=== PATIENT | male | born 2000 | race Caucasian/White ===

== ENCOUNTER 2021-01-12 22:12 | Outpatient (REF) | payer MEDICAID, SELFPAY ==
[2021-01-14 16:38] LABS: COVID-19 RT-PCR UVMMC Result Negative (Negative)
== END 2021-01-12 22:13 | disposition home or self-care (01) ==
LOC: NCHCN 22:12
PROVIDERS: PCP Nurse Practitioner; Visit Provider Nurse Practitioner Family
DX: Z20.822 Contact with and (suspected) exposure to COVID-19 (principal); J02.9 Acute pharyngitis, unspecified; R50.9 Fever, unspecified; R09.89 Other specified symptoms and signs involving the circulatory and respiratory systems
CPT/HCPCS: U0003

== ENCOUNTER 2021-01-24 20:24 | Emergency (ER) | payer MEDICAID, SELFPAY ==
[2021-01-24 20:28] VITALS: BP 138/69; PULSE 87; RESP 22; TEMP 36.6; O2SAT 98
--- NOTE | 2021-01-24 20:30 | DI.RAD_ITS ---
Exam(s) XR FOOT RT COMPLETE EXAM: XR FOOT RT COMPLETE CLINICAL HISTORY: pain s/p trauma. TECHNIQUE: 2D digital imaging was performed. COMPARISON: No exams were available for comparison FINDINGS: There is no evidence of obvious fracture or diastasis of the Lisfranc joint. Bone density normal. No osseous lesions. No radiopaque foreign body IMPRESSION: No significant acute findings. DATA REPOSITORY: RADIATION DOSE DELIVERED:
--- NOTE | 2021-01-24 20:39 | ED.GENADUL_ITS ---
Discharge Plan Disposition Patient Disposition: HOME Condition: Stable Discharge Details Clinical Impression: Crush injury of right foot Primary Care Provider: Rabia Prather ED Provider: Mike Mendoza Home Meds and New Rx's Prescriptions: No Action No Known Home Meds RF: 0 Discharge Instructions Additional Instructions: The xray did not show any concerning findings on my read, if the radiologist sees any concerning findings I will call you you can take 1000mg tylenol and 600mg ibuprofen every 6 hours for pain as needed if pain continues in a week see your primary care provider if you have severe worsening pain, or feel more ill return to the emergency department Stand Alone Forms: Work Release Medical Decision Making 20 yo male with no chronic medical problems comes in with right foot pain. A few hours ago him and his family were moving a large gun safe and it was dropped on his right foot. Did not fall or sustain other injuries. He has pain over the dorsal mid foot and has a hematoma in this area. He has no pain in the ankle with normal sensation. 2+ dp/pt pulses and normal sensation and movement of the toes. No pain in the knee hip or leg. Suspect contusion and hematoma but will xray to evaluate for possible fracture xray on my read unremarkable. He is able to bear weight and walk with mild limp so do not feel ct indicated. Pt doesn't want to wait for vrad report, will call him if vrad sees any acute findings. Advised prn tylenol and ibuprofen and if not better ramonita week to see pcp return precautions given Differential Diagnosis Differential Diagnosis: fracture, contusion, crush injury Imaging Data Radiologic Study: Attestation: I personally reviewed and interpreted this imaging study as follows: Imaging: X-Ray My impression: no acute findings HPI General Mode of arrival: ambulatory . Date/Time Provider Initiated Documentation: 01/24/21 20:38 . Limitations to Documentation: no limitations . Information obtained by: patient . History of Present Illness 20 year old M presents to the emergency department with the chief complaint of right foot pain, described as moderate, Quality is described as aching, and is localized to the right and lower extremity. Patient reports no radiation. Patient started experiencing this hour(s) (3) and it has been constant. Rest improves symptom(s), Movement worsens symptoms . Patient notes no other symptoms.. Patient did receive the following treatments prior to arrival, NSAID (200mg ibuprofen) Related Data Home Medications Medication Instructions Recorded Confirmed Unknown [No Known Home Meds] 02/21/19 02/21/19 Allergies Allergy/AdvReac Type Severity Reaction Status Date / Time amoxicillin Allergy Intermediate Hives Verified 01/12/21 18:03 Penicillins Allergy Intermediate Hives Verified 01/12/21 18:03 Sulfa (Sulfonamide Allergy Intermediate hives Verified 01/12/21 18:03 Antibiotics) General Stated Complaint: Orthopedic CASIE: 4 Review of Systems All systems reviewed & are unremarkable except as noted in HPI and below Constitutional Constitutional: Denies chills, Denies fever(s) and Denies weakness Cardiovascular Cardiovascular: Denies chest pain and Denies dyspnea Respiratory Respiratory: Denies cough and Denies dyspnea Gastrointestinal Gastrointestinal: Denies abdominal pain, Denies nausea and Denies vomiting Neurologic Neurologic: Denies weakness PFSH Family History Mother No problems noted. Father No problems noted. Sister No problems noted. Brother No problems noted. Social History Smoking/Tobacco Use Status: Never Smoking risk assessment performed?: Yes Alcohol Intake: never Drug use: Never Pets and animals: Yes Pets and animals: dog(s), fish, ferret(s) and other Sexually active: No Do you think of yourself as: straight/heterosexual Current gender identity: male Duration: 30-45 minutes/day Frequency: 1-2 times per week Seatbelt use: always Helmet use: Yes Helmet use: always Do you feel safe at home: Yes Do you feel safe in your relationship?: Yes Exam Const General: no acute distress Orientation: alert [facility] Head: normal to inspection Ears: external ears normal General nose exam: external nose normal Mouth: moist mucous membranes Eyes General: appearance normal, both eyes and all related structures Neck Neck: normal visual inspection Resp Effort & Inspection: normal respiratory effort and able to speak in complete sentences Cardio Rate: regular rate Skin General skin exam: no rashes or lesions noted Neuro General: patient alert and patient oriented x3 Extrem General: full ROM and capillary refill normal Psych Mental Status: mental status grossly normal Course Vital Signs Vital signs: Vital Signs Temperature 36.6 C 01/24/21 20:28 Pulse 87 01/24/21 20:28 Respiratory Rate 22 01/24/21 20:28 Blood Pressure 138/69 01/24/21 20:28 Pulse Oximetry 98 01/24/21 20:28 Temperature 36.6 C 01/24/21 20:28 Temperature Source Temporal Artery Scan 01/24/21 20:28 Pulse 87 01/24/21 20:28 Respiratory Rate 22 01/24/21 20:28 Respiratory Effort Non-Labored 01/24/21 20:32 Blood Pressure 138/69 01/24/21 20:28 Blood Pressure Position Sitting 01/24/21 20:28 Pulse Oximetry 98 01/24/21 20:28 Oxygen Delivery Method Room Air 01/24/21 20:28 Oxygen Flow Rate 0 01/24/21 20:28 Pain Level 6 01/24/21 20:33
[2021-01-24] MEDS: Acetaminophen 500 MG TAB 1000 MG PO (20:48)
--- NOTE | 2021-01-24 22:40 | DI.VRAD_ITS ---
PROCEDURE INFORMATION: Exam: XR Right Foot Exam date and time: 01/24/2021 8:39 PM Age: 20 years old Clinical indication: Other: Trauma, TECHNIQUE: Imaging protocol: XR Right foot. Views: 3 or more views. Total images: 3 COMPARISON: No relevant prior studies available. FINDINGS: Bones/joints: No acute fracture or malalignment. Soft tissues: Normal. IMPRESSION: No acute fracture or malalignment. Dictated and Authenticated by: Cely Sorto MD. Ordering:MARIAM Mckeon MD
--- NOTE | 2021-01-25 14:27 | NUR.NOTE ---
mother called about xray results-spoke to her relaying results from xray report-no obvious fracture.Nursing Note:
== END 2021-01-24 21:48 | disposition home or self-care (01) ==
PROVIDERS: Emergency Provider Emergency Medicine; PCP Nurse Practitioner
DX: S97.81XA Crushing injury of right foot, initial encounter (principal); W23.0XXA Caught, crushed, jammed, or pinched between moving objects, initial encounter
CPT/HCPCS: 29515; 99283; 73630; 99282

== ENCOUNTER 2021-09-17 13:50 | Emergency (ER) | payer MEDICAID, SELFPAY ==
[2021-09-17 13:58] VITALS: BP 146/78; PULSE 77; RESP 18; TEMP 36.8; O2SAT 99
--- NOTE | 2021-09-17 15:44 | ED.GENADUL_ITS ---
Discharge Plan Disposition Patient Disposition: HOME Condition: Stable Discharge Details Clinical Impression: Pilonidal cyst Primary Care Provider: Rabia Prather ED Provider: Kody Loera Home Meds and New Rx's Prescriptions: New doxycycline hyclate 100 mg capsule 100 mg PO BID Qty: 20 0RF Discharge Instructions Instructions: Pilonidal Cyst (ED) Additional Instructions: Doxycycline as directed. Warm soaks and/or compresses every 2 hours for 20 minutes. Please watch for new or worsening symptoms and return to the ER for any concerns. I have given you the name and number of our local surgical team, contact their office to discuss your ER visit and need for outpatient reevaluation. Referrals: Nori Whitaker DO [OSTEOPATHIC DOCTOR] - Medical Decision Making 21-year-old gentleman with no past medical history presents for a draining pilonidal cyst, has been present for a few days, began draining today. Has never had this before. No additional questions or concerns. Given his examination there is indication for I&D. He is afebrile, appears well, nontoxic. Will initiate antibiotic therapy and provide surgical referral Standard discharge and return precautions were provided. Patient understands, is agreeable to this plan, and has no additional questions or concerns upon discharge. This documentation was generated using [employer] dictation system, please disregard any oddities of phrase or misspellings. Medical Records Medical records reviewed: Yes I reviewed the patient's medical records. HPI General Mode of arrival: ambulatory . Date/Time Provider Initiated Documentation: 09/17/21 14:06 . Limitations to Documentation: no limitations . Information obtained by: patient . History of Present Illness 21 year old M presents to the emergency department with the chief complaint of Abscess, described as moderate, with intensity rated at 4. Quality is described as aching, and is localized to the buttocks. Patient reports no radiation. Patient started experiencing this day(s) (3) and it has been constant. No relieving factors improve symptom(s), No exacerbating factors reported . Patient notes no other symptoms.. Patient did receive the following treatments prior to arrival, none Related Data Home Medications Medication Instructions Recorded Confirmed doxycycline hyclate 100 mg capsule 100 mg PO BID #20 caps 09/17/21 Previous Rx's Medication Instructions Recorded doxycycline hyclate 100 mg capsule 100 mg PO BID #20 caps 09/17/21 Allergies Allergy/AdvReac Type Severity Reaction Status Date / Time amoxicillin Allergy Intermediate Hives Verified 01/12/21 18:03 Penicillins Allergy Intermediate Hives Verified 01/12/21 18:03 Sulfa (Sulfonamide Allergy Intermediate hives Verified 01/12/21 18:03 Antibiotics) General Stated Complaint: RashLesion CASIE: 4 Review of Systems Constitutional Constitutional: Denies fever(s) and Denies weakness Gastrointestinal Gastrointestinal: Denies abdominal pain, Denies nausea and Denies vomiting Musculoskeletal Musculoskeletal: Denies back pain and Denies tingling Integumentary/Breasts Skin/Breast: Reports erythema Neurologic Neurologic: Denies tingling and Denies weakness PFSH All Active Problems (Updated 09/17/21 @ 15:48 by HAYDE Barry) Crush injury of right foot (Acute) Pilonidal cyst (Acute) Obesity (Chronic) Family History Mother No problems noted. Father No problems noted. Sister No problems noted. Brother No problems noted. Social History Smoking/Tobacco Use Status: Never Smoking risk assessment performed?: Yes Alcohol Intake: never Drug use: Never Pets and animals: Yes Pets and animals: dog(s), fish, ferret(s) and other Sexually active: No Do you think of yourself as: straight/heterosexual Current gender identity: male Duration: 30-45 minutes/day Frequency: 1-2 times per week Seatbelt use: always Helmet use: Yes Helmet use: always Do you feel safe at home: Yes Do you feel safe in your relationship?: Yes Exam Const General: cooperative, healthy appearing, comfortable and no acute distress Orientation: alert and awake [facility] Head: normal to inspection, normocephalic and atraumatic Eyes Conjunctivae: conjunctivae normal Neck Neck: normal visual inspection, trachea midline and supple Resp Effort & Inspection: normal respiratory effort and able to speak in complete sentences Back/Spine/Pelvis Back: no CVA tenderness Back/spine/pelvis image: 1. Examination consistent with a draining pilonidal cyst. No lymphangitic streaking. There is mild induration. Skin General skin exam: no rashes or lesions noted Neuro General: patient alert, patient awake, moves all extremities and no focal motor deficits Sensory Exam: no sensory deficits noted Psych Appearance: grossly normal Mental Status: mental status grossly normal Course Vital Signs Vital signs: Vital Signs Temperature 36.8 C 09/17/21 13:58 Pulse 77 09/17/21 13:58 Respiratory Rate 18 09/17/21 13:58 Blood Pressure 146/78 H 09/17/21 13:58 Pulse Oximetry 99 09/17/21 13:58 Temperature 36.8 C 09/17/21 13:58 Temperature Source Temporal Artery Scan 09/17/21 13:58 Pulse 77 09/17/21 13:58 Respiratory Rate 18 09/17/21 13:58 Blood Pressure 146/78 H 09/17/21 13:58 Blood Pressure Position Sitting 09/17/21 13:58 Pulse Oximetry 99 09/17/21 13:58 Oxygen Delivery Method Room Air 09/17/21 13:58 Oxygen Flow Rate 0 09/17/21 13:58
== END 2021-09-17 15:58 | disposition home or self-care (01) ==
PROVIDERS: Emergency Provider Physician Assistant; PCP Nurse Practitioner
DX: L05.91 Pilonidal cyst without abscess (principal)
CPT/HCPCS: 99283

== ENCOUNTER 2021-11-16 21:12 | Emergency (ER) | payer MEDICAID, SELFPAY ==
[2021-11-16 21:20] VITALS: BP 129/70; PULSE 68; RESP 16; TEMP 36.8; O2SAT 99
--- NOTE | 2021-11-16 21:54 | ED.GENADUL_ITS ---
Discharge Plan Disposition Patient Disposition: HOME Condition: Good Discharge Details Clinical Impression: Gynecomastia Primary Care Provider: Rabia Prather ED Provider: Deric Han Discharge Instructions Instructions: Gynecomastia (ED) Additional Instructions: At this time there is enlargement of your chest wall tissue. At this time on my exam I do not feel or palpate any masses or lesions thankfully. I see no signs of infection, or concerning things like nipple inversion or tissue changes. However because of your strong family history on both your paternal and maternal side, it would be reasonable to perform further outpatient diagnostic evaluation with ultrasound and or mammogram. Please call your primary care provider's office tomorrow and discuss further testing with them. I will send my note to them as well. If you do have any significant pain or tenderness do not hesitate to take Tylenol or Motrin. As we discussed together it would be beneficial in the long-term to continue the process of weight loss, a vegetable-based diet, and continued close monitoring of his symptoms. If you notice any worsening of your symptoms, or any new symptoms such as vomiting, diarrhea, fever, chills, shortness of breath, chest pain, numbness, weakness, or fainting , please return immediately to the emergency department for reevaluation. Please follow up with your primary care provider as soon as possible for reassessment and reevaluation. As always, it was a pleasure participating in your medical care today. Referrals: Rabia Prather, [employer] [Primary Care Provider] - Medical Decision Making 21-year-old male with no significant past medical history who does have a strong family history of breast cancer in his grandmother, abnormal mammogram for his mother, and breast cancer for his uncle on his paternal side, presents today for evaluation of right-sided breast tenderness, and slight gynecomastia. Patient states that he noticed that his right nipple area has been a bit more tender for the last week or so. He denies any trauma. He does admit to a 20 pound weight gain over the last year. He does admit to increased acne and some hormonal changes over the last 2 months. He believes that the breast enlargement has occurred over the last 2 to 3 months. He denies any dietary changes, supplements, or other significant behavioral changes. He denies any galactorrhea. He has had pilonidal cyst but denies any medication change or managemen. No other complaints at this time. Physical exam demonstrates a well-appearing male. Exam of his left and right breast tissue demonstrates mild gynecomastia, no clinical evidence of nodules, lesions, inverted nipple, or skin changes. I cannot palpate any significant cervical lymphadenopathy, axillary lymphadenopathy, or clavicular lymphadenopathy on my exam. Symptoms are likely secondary to hormonal changes, causing the mild gynecomastia in addition to diet and normal weight gain. However because of the patient's strong family history I do feel that further testing is reasonable on an outpatient nonemergent setting. Will recommend outpatient follow-up with PCP for potential ultrasound versus mammogram at PCPs prerogative. Patient otherwise stable. We also had a long discussion about the importance of weight loss in general, dietary changes, and a low carcinogen based diet. Mother was at bedside. Discussed red flags which to return. I have extensively reviewed the treatment plan and discharge instructions with the patient and their family. I have addressed all patient concerns at this time. The patient and family was made aware of what symptoms to monitor for that would warrant a return to the emergency department. Discussed the plan with the patient and family, they demonstrate verbal understanding and agreement with our assessment and plan at this time. The documentation in this chart was dictated using [employer] dictation software. Please excuse any dictation errors. HPI General Date/Time Provider Initiated Documentation: 11/16/21 21:15 . HPI Narrative: 21-year-old male with no significant past medical history who does have a strong family history of breast cancer in his grandmother, abnormal mammogram for his mother, and breast cancer for his uncle on his paternal side, presents today for evaluation of right-sided breast tenderness, and slight gynecomastia. Patient states that he noticed that his right nipple area has been a bit more tender for the last week or so. He denies any trauma. He does admit to a 20 pound weight gain over the last year. He does admit to increased acne and some hormonal changes over the last 2 months. He believes that the breast enlargement has occurred over the last 2 to 3 months. He denies any dietary changes, supplements, or other significant behavioral changes. He denies any galactorrhea. He has had pilonidal cyst but denies any medication change or managemen. No other complaints at this time. Related Data Allergies Allergy/AdvReac Type Severity Reaction Status Date / Time amoxicillin Allergy Intermediate Hives Verified 11/16/21 21:27 Penicillins Allergy Intermediate Hives Verified 11/16/21 21:27 Sulfa (Sulfonamide Allergy Intermediate hives Verified 11/16/21 21:27 Antibiotics) General Stated Complaint: GenMedical CASIE: 4 Review of Systems All systems reviewed & are unremarkable except as noted in HPI and below PFSH All Active Problems Gynecomastia (Acute) Crush injury of right foot (Acute) Obesity (Chronic) Family History Mother No problems noted. Father No problems noted. Sister No problems noted. Brother No problems noted. Social History Smoking/Tobacco Use Status: Never Smoking risk assessment performed?: Yes Alcohol Intake: never Drug use: Never Substance use type: does not use Pets and animals: Yes Pets and animals: dog(s), fish, ferret(s) and other Sexually active: No Do you think of yourself as: straight/heterosexual Current gender identity: male Duration: 30-45 minutes/day Frequency: 1-2 times per week Seatbelt use: always Helmet use: Yes Helmet use: always Do you feel safe at home: Yes Do you feel safe in your relationship?: Yes Exam Narrative Exam Narrative: 1.Const: Well-nourished, Well-developed, appearing stated age 2.Eyes: PERRL, no conjunctival injection, and symmetrical lids. 3.ENT: Atraumatic external nose and ears. Moist MM. Neck: Symmetric, trachea midline, No thyromegaly. 4.CVS: +S1/S2, No murmurs or gallops. Peripheral pulses 2+ and equal in all extremities. Brisk capillary refill in all extremities. 5.RESP: Unlabored respiratory effort. Clear to auscultation bilaterally. No wheezes rales or rhonchi 6.GI: Soft, Nontender/Nondistended, No hepatosplenomegaly. No guarding or rebound. 7.MSK: Normocephalic/Atraumatic, Extremities w/o deformity or ttp No cyanosis or clubbing, Normal movement of all extremities 8.Skin: Warm, Dry. No rashes or lesions. Patient demonstrates bilateral mild gynecomastia, evaluation of the left and right breast reveal no specific lesion that I can palpate. No large mass, no significant nodule, or asymmetry between the 2. No inverted nipple, no evidence of [place]. No redness or swelling to suggest cellulitis. 9.Neuro: surveillance systems analyst II-XII grossly intact. Sensation grossly intact, no focal neurologic deficits. 10.Psych: (AAO) x3. Appropriate mood and affect Course Vital Signs Vital signs: Vital Signs Temperature 36.8 C 11/16/21 21:20 Pulse 68 11/16/21 21:20 Respiratory Rate 16 11/16/21 21:20 Blood Pressure 129/70 11/16/21 21:20 Pulse Oximetry 99 11/16/21 21:20 Temperature 36.8 C 11/16/21 21:20 Temperature Source Temporal Artery Scan 11/16/21 21:20 Pulse 68 11/16/21 21:20 Respiratory Rate 16 11/16/21 21:20 Respiratory Effort Non-Labored 11/16/21 21:25 Respiratory Depth Normal 11/16/21 21:25 Respiratory Pattern Normal 11/16/21 21:25 Blood Pressure 129/70 11/16/21 21:20 Blood Pressure Position Sitting 11/16/21 21:20 Pulse Oximetry 99 11/16/21 21:20 Pain Level 3 11/16/21 21:20
== END 2021-11-16 22:10 | disposition home or self-care (01) ==
PROVIDERS: Emergency Provider Student in an Organized Health Care Education/Training Program; PCP Nurse Practitioner
DX: N62 Hypertrophy of breast (principal)
CPT/HCPCS: 99281; 99283

== ENCOUNTER → 2021-12-01 01:50 | Outpatient (CLI) | payer MEDICAID, SELFPAY ==
--- NOTE | 2021-12-01 07:15 | DI.US_ITS ---
Exam(s) US BREAST RT COMPLETE EXAM: US BREAST RT COMPLETE CLINICAL HISTORY: breast pain bilaterally, known gynecomastia, N64.4. TECHNIQUE: Complete ultrasound of the breast was performed including all 4 quadrants, the retroareo lar region, and the ipsilateral axilla. COMPARISON: Prior mammograms were reviewed. FINDINGS: See combined report under the heading DIAGNOSTIC BILATERAL MAMMOGRAM AND COMPLETE BILATERAL BREAST ULTRASOUND. IMPRESSION: SEE COMBINED REPORT Appropriate follow-up is . BI-RADS Category 2 - Benign Findings Breast Density - Category B - Scattered areas of fibroglandular density Breast density Category C or D implies that the patient has dense breast tissue. Dense breast tissue can make it harder to find cancer on a mammogram. Dense breast tissue is also associated with an incr eased risk of breast cancer. This information about the result of the mammogram report was provided to the patient to raise their awareness. Use this report when you speak with the patient about their risks for breast cancer, which includes their family history. At that time, you may recommend additional screening tests (Ultrasoun d or MRI) as these tests may add significant information. A negative radiographic report should not delay biopsy if a dominant or clinically suspicious mass is present. Up to ten percent of cancers are not identified on mammography. A negative report may reinforce clinical impression. Adenosis and dense breasts may obscure an underlying neoplasm. False positive reports average 6 to 10%. Patient will receive a letter notifying them of these results.
--- NOTE | 2021-12-01 07:15 | DI.US_ITS ---
Exam(s) US BREAST LT COMPLETE MG MAMMO DIAGNOSTIC BI EXAM: MG MAMMO DIAGNOSTIC BI AND BILATERAL COMPLETE BREAST ULTRASOUND CLINICAL HISTORY: bilat breast pain, N64.4 mastodynia, known gynecomastia. TECHNIQUE: Both CC and MLO views of both breasts were obtained with 3D tomosynthesis technique and u tilizing computer aided detection (CAD). Also performed bilateral complete breast ultrasound, including all 4 quadrants of both breasts, the r etroareolar regions, and both axillary regions. COMPARISON: None.. FINDINGS: DIAGNOSTIC BILATERAL MAMMOGRAM: There is bilateral gynecomastia, relatively symmetrical but with the densest tissue in the retroareol ar region of the right breast. There are no spiculated masses nor malignant-appearing microcalcification groups in either breast. N o significant architectural distortion or skin thickening-traction. BILATERAL COMPLETE BREAST ULTRASOUND: No evidence of solid or significant cystic lesions in all 4 quadrants nor in the retroareolar regions both breasts. Scanning of both axillary regions was negative for adenopathy. IMPRESSION: 1. Bilateral gynecomastia, as discussed above. No radiographic evidence of malignancy. 2. Negative bilateral complete breast ultrasound. Appropriate follow-up is determine the possible cause of the gynecomastia. With respect to additiona l imaging, follow-up can be performed in 1 year, earlier if clinically indicated.. The patient was informed of the findings and follow-up recommendations by myself prior to leaving the department today. BI-RADS Category 2 - Benign Findings Breast Density - Category B - Scattered areas of fibroglandular density Breast density Category C or D implies that the patient has dense breast tissue. Dense breast tissue can make it harder to find cancer on a mammogram. Dense breast tissue is also associated with an incr eased risk of breast cancer. This information about the result of the mammogram report was provided to the patient to raise their awareness. Use this report when you speak with the patient about their risks for breast cancer, which includes their family history. At that time, you may recommend additional screening tests (Ultrasoun d or MRI) as these tests may add significant information. A negative radiographic report should not delay biopsy if a dominant or clinically suspicious mass is present. Up to ten percent of cancers are not identified on mammography. A negative report may reinforce clinical impression. Adenosis and dense breasts may obscure an underlying neoplasm. False positive reports average 6 to 10%. Patient will receive a letter notifying them of these results.
== END ==
PROVIDERS: PCP Nurse Practitioner; Visit Provider Nurse Practitioner Family
DX: N62 Hypertrophy of breast (principal); N64.4 Mastodynia
CPT/HCPCS: 76642; 77062; 77066; G0279

== ENCOUNTER 2021-12-01 02:36 | Outpatient (CLI) | payer MEDICAID, SELFPAY ==
[2021-12-01 09:53] LABS: TSH (W/Ref FT4) 1.88 uIU/mL (0.36-3.74)
[2021-12-01 20:00] LABS: Estradiol 32 pg/mL (<40)
[2021-12-02 13:29] LABS: Beta-HCG, Quant, Tumor Marker <0.6 IU/L (<1.4)
[2021-12-09 14:06] LABS: Testosterone, Total 374 ng/dL (240-950)
== END 2021-12-01 02:37 | disposition home or self-care (01) ==
LOC: LBO 02:36
PROVIDERS: PCP Nurse Practitioner; Visit Provider Nurse Practitioner Family
DX: N62 Hypertrophy of breast (principal); N64.4 Mastodynia; Z80.3 Family history of malignant neoplasm of breast
CPT/HCPCS: 36415; 84403; 82670; 83002; 84443; 84702

== ENCOUNTER 2022-04-15 06:19 | Day surgery (SDC) | payer MEDICAID, SELFPAY ==
--- NOTE | 2022-04-14 18:03 | W.ANESPRE ---
General Info Date of Service Date Performed: 04/15/22 Height: 6 ft 3 in Weight: 131.542 kg Body Mass Index (BMI): 36.2 Surgical Procedure: Operation Date: 04/15/22 07:40 Proposed Procedure Side Surgeon p Pilonidal Cyst Excision Jonathan Toscano MD Meds Allergies and Home Medications Allergies Allergy/AdvReac Type Severity Reaction Status Date / Time amoxicillin Allergy Intermediate Hives Verified 04/15/22 06:41 Penicillins Allergy Intermediate Hives Verified 04/15/22 06:41 Sulfa (Sulfonamide Allergy Intermediate hives Verified 04/15/22 06:41 Antibiotics) Home Medication Medication Instructions Recorded Unknown [No Known Home Meds] 11/19/21 Current Visit Medications: Current Medications Generic Name Dose Route Start Last Admin Trade Name Freq PRN Reason Stop Dose Admin Acetaminophen 1,000 mg 04/15/22 06:00 Acetaminophen 500 Mg Tab PO 04/15/22 23:59 PREOP RAY Gabapentin 600 mg 04/15/22 06:00 Gabapentin 300 Mg Cap PO 04/15/22 23:59 PREOP RAY Ringer's Solution 1,000 mls @ 80 mls/hr 04/15/22 06:00 IV 04/15/22 23:59 INFUSION RAY Cefazolin Sodium/Dextrose 2 gm in 50 mls @ 100 mls/hr 04/15/22 06:00 Ancef Duplex IVPB 04/15/22 23:59 PREOP RAY IV Miscellaneous Supplies 1 each 04/15/22 06:00 Iv Access IV 04/15/22 23:59 DIRECTED RAY Sodium Chloride 0 ml 04/15/22 06:00 Normal Saline Flush 10 Ml Syr IV 04/15/22 23:59 PRN PRN Sodium Chloride 0 ml 04/15/22 06:00 Normal Saline 10 Ml Vial IJ 04/15/22 23:59 DIRECTED PRN Sterile Water 0 ml 04/15/22 06:00 Water,Injection,Sterile 10 Ml Vial IJ 04/15/22 23:59 DIRECTED PRN PFSH Active Problems Active Problems: Problem Status Onset Code Obesity E66.9 Crush injury of right foot S97.81XA Bilateral mastodynia N64.4 Pilonidal disease L98.8 Pilonidal abscess L05.01 Surgical History Surgical History History of tonsillectomy [place] teeth extracted Tobacco Smoking/Tobacco Use Status: Never Alcohol Alcohol Intake: current Alcohol intake frequency: holidays/special occasions only Substance Use Substance use: Never Substance use type: does not use Vital Signs and Lab Results Vital Signs Most Recent Vital Signs in EMR: Temp Pulse Resp BP Pulse Ox 36.7 C 77 20 125/75 99 04/15/22 06:25 04/15/22 06:25 04/15/22 06:25 04/15/22 06:25 04/15/22 06:25 Lab Results Blood Type / Crossmatch: No Data to Display Complete Blood Count: No Data to Display Complete Metabolic Panel: No Data to Display Liver Function Panel: No Data to Display Coagulation Panel: No Data to Display Cardiac Panel: No Data to Display Arterial Blood Gas: No Data to Display Venous Blood Gas: No Data to Display Pancreas Panel: No Data to Display Thyroid Panel: No Data to Display Infectious Disease: No Data to Display Blood Cultures: No Data to Display Toxicology Panel: No Data to Display Anesthesia Assessment and Plan Anesthesia History Personal History: No History of Anesthesia Complications Family History: No Family History of Anesthesia Complications Exercise Tolerance Exercise Tolerance: Metabolic Equivalents>4 Cardiac & Pulmonary Exam Cardiac Exam: Normal S1/S2 Heart Sounds Pulmonary Exam: Clear Bilateral Breath Sounds Implantable Cardiac Device Does patient have a Pacemaker or an ICD?: No Airway Exam Known Difficult Airway: No Mallampati Class: 1 Mouth Opening: Normal (> 3cm) Thyromental Distance: Greater than 3 cm Neck Range of Motion: Full ROM Neck Circumference: Normal Teeth Condition: Normal Dentition ASA Classification ASA Score: ASA 2 Emergency Case?: No NPO Status NPO Status: NPO Clears >2 hours, Solids >8 hours Anesthesia Plan Resuscitation Status: Full Code Anesthesia Technique: General Anesthesia Airway Planned: Endotracheal Tube Monitors Used: Standard Monitors Preoperative Comments:: 21 yo male for pilonidal cyst removal. Sig PMHx: never smoker, occ EtOH. Plan: discussed, risk, benefits of spinal vs GA. He would prefer GA.
--- NOTE | 2022-04-14 20:30 | W.PREOPHP ---
Assessment and Plan Assessment and plan (1) Pilonidal disease: Status: Acute Assessment and plan: I will attempt pilonidal cystectomy today with primary closure. We discussed risks, benefits and anticipated recovery. He provided informed consent History of Present Illness History of Present Illness Chief Complaint: Skin lesion in the intergluteal cleft Narrative: Jovi is a 21 year old male with a pilonidal cyst. It has been infected in the past and he would like elective pilonidal cystectomy. PFSH All Active Problems Obesity (Chronic) Crush injury of right foot (Acute) Bilateral mastodynia (Acute) Pilonidal disease (Acute) Pilonidal abscess (Acute) Surgical History History of tonsillectomy [place] teeth extracted Family History Mother No problems noted. Father No problems noted. Sister No problems noted. Brother No problems noted. Social History Smoking/Tobacco Use Status: Never Smoking risk assessment performed?: Yes Alcohol Intake: current Alcohol Intake frequency: holidays/special occasions only Drug use: Never Substance use type: does not use Pets and animals: Yes Pets and animals: dog(s), fish, ferret(s) and other Sexually active: No Do you think of yourself as: straight/heterosexual Current gender identity: male Duration: 30-45 minutes/day Frequency: 1-2 times per week Seatbelt use: always Helmet use: Yes Helmet use: always Do you feel safe at home: Yes Do you feel safe in your relationship?: Yes Meds Allergies and Home Medications Allergies Allergy/AdvReac Type Severity Reaction Status Date / Time amoxicillin Allergy Intermediate Hives Verified 04/15/22 06:41 Penicillins Allergy Intermediate Hives Verified 04/15/22 06:41 Sulfa (Sulfonamide Allergy Intermediate hives Verified 04/15/22 06:41 Antibiotics) Home Medications Medication Instructions Recorded Confirmed Type Unknown [No Known Home Meds] 11/19/21 04/15/22 History Exam Const General: cooperative and healthy appearing Nutritional Appearance: overweight HENMT Head: normal to inspection Eyes General: appearance normal, both eyes and all related structures Resp Effort & Inspection: normal respiratory effort and able to speak in complete sentences Auscultation: clear to auscultation bilaterally Cardio Jugular venous pressure: no JVD Rate: regular rate Rhythm: regular rhythm Heart Sounds: S1 normal and S2 normal
--- NOTE | 2022-04-14 20:32 | W.PM.DSUDISC ---
Date of service: 04/15/22 Time of Service: 08:33 Discharge Plan Disposition Patient Disposition: Home Condition: Good Discharge Details Reason For Visit: Pilonidal cystectomy Attending Provider: Jonathan Toscano Primary Care Provider: Sarmad Beverly Home Meds and New Rx's Prescriptions: New tramadol 100 mg tablet 100 mg PO BID PRN (Reason: pain) Qty: 10 0RF Rx Instructions: Take 1 tablet by mouth up to 2 times per day if needed for severe pain. You cannot drive while using this medication. Please be careful with this medication as it is known to be addictive. Discharge Instructions Instructions: Pilonidal Cyst Excision (DC) Additional Instructions: 1. Resume all of your medications. 2. Okay to use tylenol and ibuprofen over the counter as needed. Use tramadol as needed for severe pain. 3. Okay to use heating pads or ice packs to help with pain. 4. Leave bandage in place until we see you in the office. 5. Shower with warm soapy water. Pat dry. 6. No soaking or tub baths until I see you in the office. 7. No heavy lifting until I see you in the office. 8.Call the office (or go directly to the emergency room after hours) if you notice any of the following: Develop chills (warm to touch), or if you have a thermometer and your temperature is above 101 Difficulty breathing or difficultly swallowing Persistent vomiting Any bleeding ? exceeding one tablespoon 6. Call your physician if the site where your intravenous was started becomes red, swollen, painful, and warm to touch. 7. Call the office if you notice that the light to the abhay dressing has gone out, or if you have any complications with the sticky bandage around the wound. Referrals: Jonathan Toscano MD [ [facility]FF [facility]YS[facility]IAN] - (5-7 days for ABHAY removal) Activity:: Activity as Tolerated Shower/Bathe:: 24 hours Diet:: As Tolerated Discharge Orders Discharge Orders: Discharge Order (Routine); Ordered 04/14/22 Ordered By: Jonathan Toscano DS: Diagnosis Discharge Diagnosis (1) Pilonidal disease: Status: Acute Asessment and Plan: Ago, we were able to remove the entire pilonidal cyst today. The surrounding tissues looked healthy. I do not see any signs of active infection. We closed the skin in multiple layers, and placed that negative pressure dressing that I described preoperatively. Please follow the attached instructions, and we look forward to seeing you in the office for routine postoperative visit
--- NOTE | 2022-04-14 20:34 | W.PM.OP ---
Date of service: 04/15/22 Time of Service: 08:37 Operative Note Operative Note DATE OF PROCEDURE: 04/15/22 PRE-OP DIAGNOSIS: Pilonidal cyst POST-OP DIAGNOSIS: same PROCEDURE: Pilonidal cystectomy with primary closure SURGEON: Jonathan Toscano REGULATORY AND COMPLIANCE TECHNICIAN: Eneida Phelan ANESTHESIA TYPE: Local By Surgeon and General LMA/ETT Refer to Anesthesia Record ESTIMATED BLOOD LOSS: 25 PATHOLOGY: none sent COMPLICATIONS: None Patient was transported to: PACU Patient's condition: stable Implants: None Indications: Jovi is a 21-year-old male with pilonidal cyst disease. He is experience several episodes of infection requiring incision and drainage. He is here for elective pilonidal cystectomy. Procedure Description: After the induction of general endotracheal anesthesia, the patient was assisted to the prone position. Great care was taken to pad all the points of contact. Genitals were adjusted. Next, the intergluteal cleft was prepped and draped in the usual fashion. I then established a generous field block using local anesthetic. There were 2 foci of pilonidal cyst tracts. Both were gently probed, and found to consolidate in the single region slightly below the opening, and slightly towards the patient's right side. Next, using a scalpel, I sharply dissected the surrounding soft tissues and undermined it the area of the cyst. It was removed in its entirety. Dissection was carried out through the subcutaneous fat. The wound was then irrigated. There was minimal amount of bleeding that was easily controlled with Bovie electrocautery. Next, in an effort to offset the incision towards 1 side, a full-thickness skin flap of the patient's right gluteal fold was gently elevated. This was advanced over the midline towards the patient's right side. Similarly, the skin was excised and semielliptical fashion to offset the suture line towards the patient's right side. The soft tissues were then closed in multiple layers using interrupted Vicryl stitches and the deeper layers the wound was irrigated between each layer. Finally, the skin was mobilized over towards the patient's right side, and the superficial layer was closed with vertical mattress stitches. Entire wound dimension was approximately 5 cm long by approximately 3 cm wide x 3 cm deep
[2022-04-15] VITALS (7 sets, daily range): BP systolic 105–214; BP diastolic 59–198; PULSE 68–93; RESP 16–30; TEMP 36.5–37.2; O2SAT 94–99; BMI 36.2
[2022-04-15] MEDS: Gabapentin 300 MG CAP 600 MG PO (06:44)
[2022-04-15] MEDS: Acetaminophen 500 MG TAB 1000 MG PO (06:44)
[2022-04-15] MEDS: Lactated Ringers 1,000 ML 80 ML IV (07:20)
[2022-04-15] MEDS: ceFAZolin 2 GM/50 ML BAG IVPB (07:25)
[2022-04-15] MEDS: Bupivacaine 0.5% Pres-Free W/EPI 30 ML VIAL (07:45)
--- NOTE | 2022-04-15 09:12 | W.ANESPOSTOP ---
Postoperative Evaluation Date, Time and Location Date Performed: 04/15/22 Time Performed: 08:57 Patient Location: PACU Vital Signs Most Recent Imported Vital Signs: Most Recent Vital Signs Temp Pulse Resp BP Pulse Ox 36.5 C 68 16 109/78 94 04/15/22 09:00 04/15/22 09:00 04/15/22 09:00 04/15/22 09:00 04/15/22 09:00 Pain Score Most Recent Pain Score: Most Recent Pain Score Pain Level 4 04/15/22 09:00 Assessment Mental Status: Awake (Alert & Oriented to Patient Baseline) Airway and Respiratory Function: Patent airway with normal (patient baseline) respiratory exam Cardiovascular Function: Hemodynamically Stable Hydration Status: Adequately Hydrated Nausea & Vomiting: No Nausea or Vomiting Pain: Pain is tolerable per patient Peripheral Nerve Block: Patient did not receive a nerve block
== END 2022-04-15 10:20 | disposition home or self-care (01) ==
PROVIDERS: PCP Nurse Practitioner Family; Visit Provider Surgery
PROC: (CPT 11771; principal; 2022-04-15 07:30)
DX: L05.91 Pilonidal cyst without abscess (principal)
CPT/HCPCS: 11771; J0690; J1100; J1885; J2405; J2704